=== PATIENT | male | born 1995 ===

== ENCOUNTER 2017-01-13 19:50 | Emergency (ER) | payer MEDICAID ==
[2017-01-13 20:20] VITALS: O2SAT 98
[2017-01-13] MEDS ORDERED: Lidocaine 1% Inj (20ml) IJ ONE (20:27)
--- NOTE | 2017-01-13 20:30 | ED PDOC ---
HPI: Wound Care - HPI Time Seen by Provider: 01/13/17 20:22 Chief Complaint (Nursing): Abnormal Skin Integrity Chief Complaint (Provider): finger laceration History Per: Patient History Of Present Illness: 21 y/o male presents with laceration to left hand 2nd digit sustained 1 hour prior to arrival. Patient states he accidentally cut finger trying to clear jammed paper shredder with a knife. Admits to decreased sensation near cut. Denies weakness left upper extremity, limitation of movement. Last tetanus unknown. Past Medical History Reviewed: Historical Data, Nursing Documentation, Vital Signs Vital Signs: Last Vital Signs Temp 99.0 F 01/13/17 20:17 Pulse 75 01/13/17 20:17 Resp 18 01/13/17 20:17 BP 123/73 01/13/17 20:17 Pulse Ox 98 01/13/17 20:17 - Medical History PMH: Anxiety Denies: Diabetes, Hepatitis, HIV, HTN, Chronic Kidney Disease, Seizures, Sexually Transmitted Disease - Surgical History Surgical History: No Surg Hx - Family History Family History: States: Unknown Family Hx - Home Medications Home Medications: Ambulatory Orders Medication Instructions Recorded FLUoxetine [Prozac] 10 mg PO DAILY #30 cap 05/30/14 Quetiapine Fumarate [Seroquel] 100 mg PO HS #30 tab 05/30/14 Mupirocin 2% Nasal [Bactroban 2% 1 dose TOP BID #1 gm 05/21/15 Nasal] - Allergies Allergies/Adverse Reactions: Allergies Allergy/AdvReac Type Severity Reaction Status Date / Time No Known Allergies Allergy Verified 05/24/14 17:59 Review of Systems ROS Statement: Except As Marked, All Systems Reviewed And Found Negative Musculoskeletal: Positive for: Hand Pain (left hand 2nd digit laceration) Physical Exam - Reviewed Nursing Documentation Reviewed: Yes Vital Signs Reviewed: Yes - Physical Exam Appears: Positive for: Well, Non-toxic, No Acute Distress Head Exam: Positive for: ATRAUMATIC, NORMAL INSPECTION, NORMOCEPHALIC Skin: Positive for: Normal Color Pulses-Radial (L): 2+ Pulses-Radial (R): 2+ Extremity: Positive for: Normal ROM, Other (2cm superficial laceration left hand 2nd digit lateral aspect. FROM. Distal sensation laterally.) Neurologic/Psych: Positive for: Alert, Oriented - ECG O2 Sat by Pulse Oximetry: 98 Procedure: Wound Repair - Time Performed Time Performed: 20:50 - Time Out Time Out: Side verified, Site verified, Patient ID confirmed, Sterile procedures obs. - Consent Obtained Consent obtained: Verbal - Performed by Performed by: Mid-level Provider - Indications Indication(s):: Laceration - Location Location:: Left Finger:: Left, Index Shape:: Linear Dimensions Length cm: 2cm Dimensions width cm: 0.2cm Depth:: Epidermis - Anesthetic Technique Anesthetic Technique: Topical Local/Regional Anesthetic:: Lidocaine 1% - Debris Debris:: None - Irrigated Irrigated with ml of normal saline: 200mL - Complexity Complexity:: Simple (one layer) - Wound repair method Sutures:: # (3), Size (4'0), Type (nylon), Technique (interrupted) - Muscle repiar layer closed with Muscle repair layer closed with:: Wound well approximated, Abx ointment applied , Dressing applied, Tetanus ordered - Patient tolerated procedure Patient Tolerated Procedure:: Well Medical Decision Making Medical Decision Making: Patient educated on wound care, suture removal 7-8 days. Return precautions given. Disposition - Clinical Impression Clinical Impression: Finger laceration - Patient ED Disposition Is Patient to be Admitted: No Counseled Patient/Family Regarding: Diagnosis, Need For Followup - Disposition Referrals: Zeinab Almaraz MD [Staff Provider] - Disposition: Routine/Home Disposition Time: 21:14 Condition: STABLE Additional Instructions: Suture removal 7-8 days. Return to ED for increased pain/redness/swelling at site, discharge from site, or other concerning symptoms. Instructions: Care For Your Stitches (ED), Laceration (ED) Forms: HEROZ (Namibian)
[2017-01-13 23:12] VITALS: BP 130/69; PULSE 83; RESP 16; TEMP 97.8
== END 2017-01-13 21:10 | disposition home or self-care (01) ==
LOC: H.ER 19:50
DX: S61.211A Laceration without foreign body of left index finger without damage to nail, initial encounter (principal); W31.89XA Contact with other specified machinery, initial encounter; Y93.9 Activity, unspecified